=== PATIENT | male | born 1990 | race Caucasian/White ===

== ENCOUNTER 2022-07-06 08:16 | Outpatient (CLI) | payer BC ==
[2022-07-06 14:29] LABS: BASOPHILS % (AUTO) 0.4 %; EOSINOPHILS # (AUTO) 0.1 10^3/uL (0.0-0.7); EOSINOPHILS % (AUTO) 1.8 %; HCT - HEMATOCRIT 46.8 % (42.0-52.0); HGB - HEMOGLOBIN 15.6 g/dL (14.0-18.0); LYMPHOCYTES # (AUTO) 2.8 10^3/uL (1.5-3.5); LYMPHOCYTES % (AUTO) 39.1 %; MEAN CORPUSCULAR HEMOGLOBIN 29.2 pg (27.0-31.0); MEAN CORPUSCULAR HGB CONC 33.3 g/dL (32.0-36.0); MEAN CORPUSCULAR VOLUME 87.6 fL (80.0-94.0); MEAN PLATELET VOLUME 10.8 fL (7.4-11.4); MONOCYTES # (AUTO) 0.5 10^3/uL (0.0-1.0); MONOCYTES % (AUTO) 6.8 %; NEUTROPHILS # (AUTO) 3.7 10^3/uL (1.5-6.6); NEUTROPHILS % (AUTO) 51.6 %; PLT - PLATELET COUNT 271 10^3/uL (130-450); RED BLOOD COUNT 5.34 10^6/uL (4.70-6.10); RED CELL DISTRIBUTION WIDTH 12.3 % (12.0-15.0); WHITE BLOOD COUNT 7.2 x10^3/uL (4.8-10.8)
[2022-07-06 15:49] LABS: CORTISOL 10.1 ug/dL
[2022-07-06 15:50] LABS: THYROID STIMULATING HORMONE 1.9 uIU/mL (0.34-5.60)
[2022-07-06 15:52] LABS: FREE T4 (FREE THYROXINE) 0.86 ng/dL (0.58-1.64)
[2022-07-06 15:56] LABS: FERRITIN 119.6 ng/mL (23.9-336.2)
[2022-07-06 16:05] LABS: ALBUMIN/GLOBULIN RATIO 1.8 (1.0-2.2); ALKALINE PHOSPHATASE 55 IU/L (42-121); ALT ALANINE AMINOTRANSFERASE 19 IU/L (10-60); AST ASPARTATE AMINOTRANSFERASE 19 IU/L (10-42); BILIRUBIN,TOTAL 2.4 mg/dL (0.2-1.0); BUN - BLOOD UREA NITROGEN 13 mg/dL (6-20); CALCIUM 9.5 mg/dL (8.5-10.3); CARBON DIOXIDE - CO2 26 mmol/L (21-32); CHLORIDE 100 mmol/L (101-111); CHOL/HDL RATIO 2.5 (<5.0); CHOLESTEROL 121 mg/dL; CREATININE 0.8 mg/dL (0.6-1.2); CRP HIGH SENSITIVITY 0.7 mg/L; GFR - MDRD 112 (>89); GLUCOSE 86 mg/dL (70-100); HDL CHOLESTEROL 49 mg/dL; LDL CHOLESTEROL,CALCULATED 59 mg/dL; LDL CHOLESTEROL,DIRECT 56 mg/dL; LDL/HDL RATIO 1.2 (<3.6); POTASSIUM 3.6 mmol/L (3.5-5.0); SODIUM 135 mmol/L (135-145); TOTAL PROTEIN 7.8 g/dL (6.7-8.2); TRIGLYCERIDES 64 mg/dL; VLDL CHOLESTEROL 13 mg/dL
[2022-07-07 03:10] LABS: VITAMIN D 25-HYDROXY 39.2 ng/mL (30.0-100.0)
[2022-07-16 19:07] LABS: 1,25-DIHYDROXY VITAMIN D-2 <10 pg/mL (.); 1,25-DIHYDROXY VITAMIN D-3 54 pg/mL (.); TOTAL 1,25-DIHYDROXYVITAMIN D 57 pg/mL (.)
== END 2022-07-06 08:17 | disposition home or self-care (01) ==
LOC: LAB.S 08:16
PROVIDERS: ATTEND Preventive Medicine Public Health & General Preventive Medicine
DX: K90.0 Celiac disease (principal); R53.82 Chronic fatigue, unspecified; E55.9 Vitamin D deficiency, unspecified; E27.8 Other specified disorders of adrenal gland; E16.2 Hypoglycemia, unspecified; D68.9 Coagulation defect, unspecified; E03.9 Hypothyroidism, unspecified; G47.00 Insomnia, unspecified; E78.5 Hyperlipidemia, unspecified
CPT/HCPCS: 36415; 80053; 80061; 81599; 82306; 82390; 82525; 82533; 82627; 82652; 82728; 83090; 83721; 84439; 84443; 84481; 85025; 85379; 85384; 86141